=== PATIENT | female | born 1970 | race Caucasian/White ===

== ENCOUNTER 2019-08-19 10:15 | Inpatient (IN) | payer MEDICARE, MEDICAID ==
[~2019-08-19] VITALS: Ht 152.4 cm; Wt 70.0 kg
[~2019-08-19 10:15] MED LIST: ALBU90AE INH; AMIT25TA PO; BACITRACIN 50,000 UNIT ONE; BUPIVACAINE/PF 0.5% ONE; CARB200T3 PO; EPINEPHRINE 1 MG/ML, 1ML ONE; ESTR1TAB15 PO; ESTR1TAB17; HYDR-3237; HYDR-826 PO; HYDR1TAB15 PO; IBUP-1223 PO; LOSA25TA25 PO; SIMV40TA3 PO; SUMA100T3 PO; THROMBIN 5,000 UNIT VIAL TP ONE
[2019-08-19] MEDS ORDERED: LACTATED RINGERS 1,000 ML IV SCH (10:46)
[2019-08-19 10:50] VITALS: BP 143/92
[2019-08-19] MEDS ORDERED: ACETAMINOPHEN 500 MG TABLET PO ONE (11:00)
[2019-08-19] MEDS ORDERED: SCOPOLAMINE PATCH, 1.5MG PATCH.TD72 TD ONE ×2 (11:00→11:02)
[2019-08-19] MEDS ORDERED: GABAPENTIN 300 MG CAPSULE ONE (11:02)
[2019-08-19] MEDS ORDERED: ACETAMINOPHEN 500 MG TABLET ONE (11:02)
[2019-08-19] MEDS ORDERED: MIDAZOLAM 1 MG/ML, 2ML ONE (13:38)
[2019-08-19] MEDS ORDERED: FENTANYL PF 250 MCG/5ML ONE (13:39)
[2019-08-19] MEDS ORDERED: PROPOFOL 50 ML ONE ×2 (13:40→16:35)
[2019-08-19] MEDS ORDERED: ONDANSETRON 2MG/ML, 2ML IV PRN (14:00)
[2019-08-19] MEDS ORDERED: HYDROmorphone 2 MG/ML, 1ML IVPush PRN (14:00)
[2019-08-19] MEDS ORDERED: OXYcodone 5 MG/5 ML ORAL.SOL UDC PO PRN (14:00)
[2019-08-19] MEDS ORDERED: MEPERIDINE/PF 25MG/ML,1ML IVPush PRN (14:00)
[2019-08-19] MEDS ORDERED: LABETALOL 5MG/ML, 20ML IV PRN (14:00)
[2019-08-19] MEDS ORDERED: LORazepam 2 MG/ML, 1ML IVPush PRN (14:00)
[2019-08-19] MEDS ORDERED: hydrALAzine 20 MG/ML, 1ML IV PRN (14:00)
[2019-08-19] MEDS ORDERED: CEFAZOLIN 1,000 MG ONE (15:30)
[2019-08-19] MEDS ORDERED: DEXAMETHASONE 4 MG/ML, 1ML ONE (15:30)
[2019-08-19] MEDS ORDERED: LIDOCAINE PF 2%, 5ML ONE (15:30)
[2019-08-19] MEDS ORDERED: SUGAMMADEX 200 MG/2 ML IVPush ONE (15:30)
[2019-08-19] MEDS ORDERED: ROCURONIUM 10 MG/ML,10ML ONE (15:30)
[2019-08-19] MEDS ORDERED: SUCCINYLCHOLINE 20 MG/ML, 10ML ONE (15:30)
[2019-08-19] MEDS ORDERED: FENTANYL PF 100 MCG/2ML ONE (17:29)
[2019-08-19] MEDS ORDERED: DIAZEPAM 5 MG/ML, 2ML ONE (17:29)
[2019-08-19] MEDS ORDERED: OXYcodone 5 MG/5 ML ORAL.SOL UDC ONE (17:29)
[2019-08-19] MEDS ORDERED: MAGNESIUM HYDROXIDE 8%, 30ML UDC PO PRN (17:30)
[2019-08-19] MEDS ORDERED: METHOCARBAMOL 750 MG TABLET PO PRN (17:30)
[2019-08-19] MEDS ORDERED: SENNA/DOCUSATE TABLET PO PRN (17:30)
[2019-08-19] MEDS ORDERED: PHARMACY MAY ADJ FOR RENAL FX MC PRN (17:30)
[2019-08-19] MEDS ORDERED: PROMETHAZINE 25 MG/ML, 1ML IM PRN (17:30)
[2019-08-19] MEDS ORDERED: DIPHENHYDRAMINE 50 MG/ML, 1ML IVPush PRN (17:30)
[2019-08-19] MEDS ORDERED: SUMATRIPTAN 100 MG TABLET PO PRN (17:30)
[2019-08-19] MEDS ORDERED: ALBUTEROL SULFATE 2.5 MG/3 ML NPPB PRN (17:30)
[2019-08-19] MEDS ORDERED: ONDANSETRON 2MG/ML, 2ML IVPush PRN (17:30)
[2019-08-19] MEDS ORDERED: OXYcodone/APAP 5/325MG TABLET PO PRN (17:30)
[2019-08-19] MEDS ORDERED: morphine SULFATE 10 MG/ML, 1ML IVPush PRN (17:30)
[2019-08-19] MEDS: FENTANYL PF 100 MCG/2ML IV PRN ×2 (17:31→17:39)
[2019-08-19] MEDS: DIAZEPAM 5 MG/ML, 2ML IVPush PRN ×2 (17:38→17:53)
[2019-08-19] MEDS ORDERED: HYDROmorphone 1 MG/ML, 1ML INJ ONE (17:55)
[2019-08-19] MEDS: CARBAMAZEPINE 200 MG TABLET PO SCH ×2 (19:52→19:57)
[2019-08-19] MEDS: LOSARTAN 25MG TABLET PO SCH (19:53)
[2019-08-19] MEDS: AMITRIPTYLINE 25 MG TABLET PO SCH (19:53)
[2019-08-19] MEDS: SODIUM CHLORIDE FLUSH 10ML SYR IVF SCH (19:53)
[2019-08-19] MEDS: CYCLOBENZAPRINE 10 MG TABLET PO PRN (19:53)
[2019-08-19] MEDS: D5%-0.9% NACL+KCL 20MEQ 1,000 ML IV SCH (20:04)
[2019-08-19 20:14] VITALS: BP 147/99
[2019-08-19] MEDS: HYDROcodone/APAP 10/325 MG TABLET PO PRN (21:36)
[2019-08-19] MEDS: CEFAZOLIN PMX 1GM/50ML 50 ML IVPB SCH (23:21)
[2019-08-20 01:14] VITALS: BP 130/87
[2019-08-20] MEDS: HYDROcodone/APAP 10/325 MG TABLET PO PRN ×5 (01:47→18:31)
[2019-08-20 04:42] VITALS: BP 122/83
[2019-08-20] MEDS: AMITRIPTYLINE 25 MG TABLET PO SCH ×3 (06:35→20:29)
[2019-08-20] MEDS: CARBAMAZEPINE 200 MG TABLET PO SCH ×4 (06:35→20:29)
[2019-08-20] MEDS: CEFAZOLIN PMX 1GM/50ML 50 ML IVPB SCH (07:27)
[2019-08-20] MEDS: SODIUM CHLORIDE FLUSH 10ML SYR IVF SCH ×2 (09:00→20:31)
[2019-08-20] MEDS ORDERED: SIMVASTATIN 40 MG TABLET PO SCH ×3 (09:00→21:00)
[2019-08-20 09:01] VITALS: BP 137/90
[2019-08-20 13:59] VITALS: BP 135/90
--- NOTE | 2019-08-20 14:02 | NUR ---
REC: Chopped/NTL; orange sheet posted Addendum: 08/20/19 at 1403 by Jaye HALEY Amended: Links added.
[2019-08-20] MEDS: D5%-0.9% NACL+KCL 20MEQ 1,000 ML IV SCH (16:59)
[2019-08-20 18:59] VITALS: BP 145/78
[2019-08-20] MEDS: CYCLOBENZAPRINE 10 MG TABLET PO PRN (19:45)
[2019-08-20] MEDS: LOSARTAN 25MG TABLET PO SCH (20:29)
[2019-08-20] MEDS: HYDROcodone/APAP 5/325 TABLET PO PRN (23:31)
[2019-08-21 03:22] VITALS: BP 120/89
[2019-08-21] MEDS: HYDROcodone/APAP 5/325 TABLET PO PRN ×3 (03:59→13:47)
[2019-08-21] MEDS: CARBAMAZEPINE 200 MG TABLET PO SCH ×3 (06:32→14:14)
[2019-08-21] MEDS: AMITRIPTYLINE 25 MG TABLET PO SCH ×2 (06:32→16:38)
[2019-08-21 07:28] VITALS: BP 131/90
[2019-08-21] MEDS: SODIUM CHLORIDE FLUSH 10ML SYR IVF SCH (08:34)
[2019-08-21] MEDS: D5%-0.9% NACL+KCL 20MEQ 1,000 ML IV SCH (08:34)
[2019-08-21] MEDS: CYCLOBENZAPRINE 10 MG TABLET PO PRN (08:34)
[2019-08-21] MEDS ORDERED: CEFAZOLIN 1,000 MG IV SCH (12:00)
[2019-08-21] MEDS ORDERED: DEXAMETHASONE 4 MG/ML, 1ML IVPush SCH (12:00)
[2019-08-21] MEDS ORDERED: CEFAZOLIN PMX 1GM/50ML 50 ML IV SCH (12:00)
[2019-08-21 13:41] VITALS: BP 136/93
[2019-08-21] MEDS ORDERED: METH750T2 PO (13:42)
[2019-08-21] MEDS ORDERED: OXYcodone/APAP 5/325MG PO (13:42)
[2019-08-21] MEDS ORDERED: prednisone PO (16:39)
== END 2019-08-21 17:54 | disposition home or self-care (01) | DRG 473 ==
LOC: ORIP 10:15 → 4NE 18:38
PROVIDERS: ADMIT Neurological Surgery; ATTEND Neurological Surgery
PROC: 00NW0ZZ Release Cervical Spinal Cord, Open Approach (ICD-10-PCS; 2019-08-19)
PROC: 01N10ZZ Release Cervical Nerve, Open Approach (ICD-10-PCS; 2019-08-19)
PROC: 4A11X4G Monitoring of Peripheral Nervous Electrical Activity, Intraoperative, External Approach (ICD-10-PCS; 2019-08-19)
PROC: 0RG20A0 Fusion of 2 or more Cervical Vertebral Joints with Interbody Fusion Device, Anterior Approach, Anterior Column, Open Approach (ICD-10-PCS; principal; 2019-08-19 13:30)
DX: M50.122 Cervical disc disorder at C5-C6 level with radiculopathy (principal); M48.02 Spinal stenosis, cervical region; I10 Essential (primary) hypertension; J45.909 Unspecified asthma, uncomplicated; F32.9 Major depressive disorder, single episode, unspecified; F41.9 Anxiety disorder, unspecified
CPT/HCPCS: 36415; 71046; 72040; 76000; 86850; 86900; C1713; G0378; J0171; J0690; J1100; J2250; J2704; J3010; J3360; C1762; J0330; J3480; J7120; Q0177

== ENCOUNTER 2019-11-04 12:58 | Observation (INO) | payer MEDICARE, MEDICAID ==
[~2019-11-04] VITALS: Ht 152.4 cm; Wt 70.0 kg
[~2019-11-04 12:58] MED LIST changes: +BUPIVACAINE 0.25% ONE; -BUPIVACAINE/PF 0.5% ONE; +BUPIVACAINE/PF-EPI 0.5% 1:200K ONE; -EPINEPHRINE 1 MG/ML, 1ML ONE; +METH750T2 PO; +OXYcodone/APAP 5/325MG PO; +SIMV40TA20 PO; -SIMV40TA3 PO; -THROMBIN 5,000 UNIT VIAL TP ONE; +VANCOMYCIN 1,000 MG ONE; +prednisone PO
[2019-11-04] MEDS ORDERED: OxyconTIN ER 10 MG TAB.ER PO ONE (13:30)
[2019-11-04] MEDS ORDERED: PLEASE ENTER HEIGHT AND WEIGHT MC SCH (13:30)
[2019-11-04] MEDS ORDERED: DIAZEPAM 5 MG TABLET PO ONE (13:30)
[2019-11-04] MEDS ORDERED: GABAPENTIN 300 MG CAPSULE PO ONE (13:30)
[2019-11-04] MEDS ORDERED: ACETAMINOPHEN 500 MG TABLET PO ONE (13:30)
[2019-11-04 13:34] VITALS: BP 115/79
[2019-11-04] MEDS: LACTATED RINGERS 1,000 ML IV SCH ×2 (13:58→20:16)
[2019-11-04] MEDS ORDERED: FENTANYL PF 250 MCG/5ML ONE (15:07)
[2019-11-04] MEDS ORDERED: MIDAZOLAM 1 MG/ML, 2ML ONE (15:07)
[2019-11-04] MEDS ORDERED: PROPOFOL 50 ML ONE (15:08)
[2019-11-04] MEDS ORDERED: BUPIVACAINE LIPOSOME/PF 10ML INFIL ONE (16:09)
[2019-11-04] MEDS ORDERED: MEPERIDINE/PF 25MG/ML,1ML IVPush PRN (16:30)
[2019-11-04] MEDS ORDERED: ACETAMINOPHEN 325 MG TABLET PO PRN (16:30)
[2019-11-04] MEDS ORDERED: ALBUTEROL/IPRATROPIUM 2.5MG/0.5MG, 3 ML NPPB PRN (16:30)
[2019-11-04] MEDS ORDERED: HYDROmorphone 2 MG/ML, 1ML IVPush PRN (16:30)
[2019-11-04] MEDS ORDERED: OXYcodone 5 MG/5 ML ORAL.SOL UDC PO PRN (16:30)
[2019-11-04] MEDS ORDERED: METOPROLOL 1 MG/ML, 5ML IV PRN (16:30)
[2019-11-04] MEDS ORDERED: PROMETHAZINE 25 MG/ML, 1ML IV PRN (16:30)
[2019-11-04] MEDS ORDERED: MIDAZOLAM 1 MG/ML, 2ML IV PRN (16:30)
[2019-11-04] MEDS ORDERED: FENTANYL PF 100 MCG/2ML IV PRN (16:30)
[2019-11-04] MEDS ORDERED: hydrALAzine 20 MG/ML, 1ML IV PRN (16:30)
[2019-11-04] MEDS ORDERED: FENTANYL PF 100 MCG/2ML ONE (16:47)
[2019-11-04] MEDS ORDERED: ONDANSETRON 2MG/ML, 2ML ONE (17:08)
[2019-11-04] MEDS ORDERED: PROPOFOL 10 MG/ML, 20ML ONE (17:08)
[2019-11-04] MEDS ORDERED: CEFAZOLIN 1,000 MG ONE (17:08)
[2019-11-04] MEDS ORDERED: SUCCINYLCHOLINE 20 MG/ML, 10ML ONE ×2 (17:08)
[2019-11-04] MEDS ORDERED: DEXAMETHASONE 4 MG/ML, 1ML ONE (17:08)
[2019-11-04] MEDS ORDERED: ALBUTEROL SULFATE HOMEINH PRN (17:30)
[2019-11-04] MEDS ORDERED: METHOCARBAMOL 750 MG TABLET PO PRN ×2 (17:30)
[2019-11-04] MEDS ORDERED: morphine SULFATE 10 MG/ML, 1ML IVPush PRN (17:30)
[2019-11-04] MEDS ORDERED: ONDANSETRON 2MG/ML, 2ML IVPush PRN (17:30)
[2019-11-04] MEDS ORDERED: SUMATRIPTAN 100 MG TABLET PO PRN (17:30)
[2019-11-04] MEDS ORDERED: DIPHENHYDRAMINE 50 MG/ML, 1ML IVPush PRN (17:30)
[2019-11-04] MEDS ORDERED: D5%-0.9% NACL+KCL 20MEQ 1,000 ML IV SCH (17:30)
[2019-11-04] MEDS ORDERED: OXYcodone IR 5MG TABLET PO PRN (17:30)
[2019-11-04] MEDS ORDERED: PHARMACY MAY ADJ FOR RENAL FX MC PRN (17:30)
[2019-11-04] MEDS ORDERED: CYCLOBENZAPRINE 10 MG TABLET PO PRN (17:30)
[2019-11-04] MEDS ORDERED: PROMETHAZINE 25 MG/ML, 1ML IM PRN (17:30)
[2019-11-04 18:55] VITALS: BP 113/77
[2019-11-04] MEDS ORDERED: ALBUTEROL SULFATE 2.5 MG/3 ML NPPB PRN (19:30)
[2019-11-04] MEDS: SODIUM CHLORIDE FLUSH 10ML SYR IVF SCH (20:17)
[2019-11-04] MEDS: AMITRIPTYLINE 25 MG TABLET PO SCH (20:17)
[2019-11-04] MEDS: CARBAMAZEPINE 200 MG TABLET PO SCH (20:19)
[2019-11-04] MEDS ORDERED: LOSARTAN 25MG TABLET PO SCH (21:00)
[2019-11-04] MEDS ORDERED: CARBAMAZEPINE 200 MG TABLET PO SCH (21:00)
[2019-11-04] MEDS: OXYcodone/APAP 5/325MG TABLET PO PRN (21:34)
[2019-11-05] MEDS ORDERED: CEFAZOLIN PMX 1GM/50ML 50 ML IVPB SCH
[2019-11-05 00:07] VITALS: BP 96/66
[2019-11-05] MEDS: OXYcodone/APAP 5/325MG TABLET PO PRN (03:01)
[2019-11-05 03:35] VITALS: BP 113/85
[2019-11-05 07:16] VITALS: BP 144/95
[2019-11-05] MEDS ORDERED: HYDROcodone/APAP 10/325 MG TABLET ONE (08:20)
[2019-11-05] MEDS: AMITRIPTYLINE 25 MG TABLET PO SCH (08:26)
[2019-11-05] MEDS: SODIUM CHLORIDE FLUSH 10ML SYR IVF SCH (08:26)
[2019-11-05] MEDS: CARBAMAZEPINE 200 MG TABLET PO SCH (08:26)
[2019-11-05] MEDS ORDERED: HYDROcodone/APAP 10/325 MG TABLET PO PRN (08:30)
[2019-11-05] MEDS ORDERED: HYDR-36 PO (09:08)
[2019-11-05] MEDS ORDERED: CEPH-368 PO (09:09)
[2019-11-05] MEDS ORDERED: METH750T87 PO (09:09)
[2019-11-05] MEDS ORDERED: SIMVASTATIN 40 MG TABLET PO SCH (21:00)
== END 2019-11-05 09:38 | disposition home or self-care (01) ==
LOC: OR 12:58 → 4NE 18:50 → OR 20:11 → 4NE 20:17 → DCLOUNGE 11-05 09:23
PROVIDERS: ADMIT Neurological Surgery; ATTEND Neurological Surgery
DX: M51.16 Intervertebral disc disorders with radiculopathy, lumbar region (principal); M48.061 Spinal stenosis, lumbar region without neurogenic claudication; I50.20 Unspecified systolic (congestive) heart failure; I25.10 Atherosclerotic heart disease of native coronary artery without angina pectoris; I10 Essential (primary) hypertension
CPT/HCPCS: 63030; 63035; 72100; 76000; 96365; G0378; J0330; J0690; J1100; J2250; J2405; J2704; J3010; J3370; J3480; J3490; J7120